=== PATIENT | female | born 1990 | race Caucasian/White ===

== ENCOUNTER 2020-11-22 14:49 | Outpatient (CLI) | payer BC, OTHER ==
[~2020-11-22 14:49] MED LIST: FLEXERIL 10 MG10 MG PO; IBUPROFEN600 MG PO; TAMIFLU75 MG PO
[2020-11-22 15:50] LABS: HEMOGLOBIN 13.6 gm/dl (12.3-15.3); RED BLOOD COUNT 4.56 M/UL (4.00-5.10)
[2020-11-22 15:59] LABS: BUN/CREATININE RATIO 9 (0-10)
== END 2020-11-22 16:11 | disposition home or self-care (01) ==
LOC: GENOP 14:49
PROVIDERS: Obstetrics & Gynecology
DX: Z01.812 Encounter for preprocedural laboratory examination (principal)
CPT/HCPCS: 36415; 80053; 81001; 85025; J7120

== ENCOUNTER 2020-11-23 07:30 | Inpatient (IN) | payer BC, OTHER ==
[2020-11-23 09:37] LABS: RED BLOOD COUNT 4.68 M/UL (4.00-5.10); WHITE BLOOD COUNT 10.8 K/UL (4.5-11.0)
[2020-11-24 05:57] LABS: HEMOGLOBIN 12.3 gm/dl (12.3-15.3)
[2020-11-24] MEDS ORDERED: HYDROCODON-ACE1 EAC4 PO (14:55)
[2020-11-24] MEDS ORDERED: IBUPROFEN600 MG PO (14:55)
[2020-11-24] MEDS ORDERED: DOCUSATE SODIU100 MG PO (14:55)
== END 2020-11-25 14:48 | disposition home or self-care (01) | DRG 787 ==
LOC: OB 09:00
PROVIDERS: ADMIT Obstetrics & Gynecology
PROC: 4A1HX4Z Monitoring of Products of Conception, Cardiac Electrical Activity, External Approach (ICD-10-PCS; 2020-11-23)
PROC: 10D00Z1 Extraction of Products of Conception, Low, Open Approach (ICD-10-PCS; principal; 2020-11-23 10:15)
DX: O99.214 Obesity complicating childbirth (principal); Q27.30 Arteriovenous malformation, site unspecified; E66.9 Obesity, unspecified; O36.63X0 Maternal care for excessive fetal growth, third trimester, not applicable or unspecified; Z20.822 Contact with and (suspected) exposure to COVID-19; O24.424 Gestational diabetes mellitus in childbirth, insulin controlled; Z37.0 Single live birth; Z3A.37 37 weeks gestation of pregnancy; Z86.73 Personal history of transient ischemic attack (TIA), and cerebral infarction without residual deficits
CPT/HCPCS: 36415; 80053; 81001; 82800; 82962; 85014; 85018; 85025; 90715; C9113; J0690; J1885; J2274; J2405; J2590; J3010; J7120